=== PATIENT | female | born 1990 | race African-American/Black ===

== ENCOUNTER 2017-04-10 14:20 | Emergency (ER) | payer SELFPAY ==
--- NOTE | 2017-04-10 14:51 | RAD ---
3 VIEWS LEFT FOOT: Date: 04/10/17 COMPARISON: 12/09/15. HISTORY: Left foot pain after descending steps. FINDINGS: Three views of the left foot show no evidence of acute fracture or dislocation. No degenerative ragland ges are seen. No soft tissue swelling is present. IMPRESSION: No evidence of acute osseous abnormality. POS: [facility]
[2017-04-10] MEDS ORDERED: Ketorolac Tromethamine 60 MG/2 ML VIAL ONE (15:23)
== END 2017-04-10 15:53 | disposition home or self-care (01) ==
LOC: ERS 14:20
DX: S96.912A Strain of unspecified muscle and tendon at ankle and foot level, left foot, initial encounter (principal); F41.9 Anxiety disorder, unspecified; F32.9 Major depressive disorder, single episode, unspecified; W10.9XXA Fall (on) (from) unspecified stairs and steps, initial encounter
CPT/HCPCS: 96372; J1885

== ENCOUNTER 2017-06-30 16:34 | Emergency (ER) | payer SELFPAY ==
--- NOTE | 2017-06-30 18:00 | RAD ---
AP CHEST: Indication: Chest congestion. Comparison: 02-29-16 IMPRESSION: No focal consolidation demonstrated. Examination does not appear appreciably changed from comparison 02-29-16. POS: [facility]
[2017-06-30] MEDS ORDERED: Dexamethasone 4 mg/ml Vial ONE (18:11)
== END 2017-06-30 18:30 | disposition home or self-care (01) ==
LOC: ERS 16:34
DX: J20.9 Acute bronchitis, unspecified (principal); F41.9 Anxiety disorder, unspecified; F32.9 Major depressive disorder, single episode, unspecified
CPT/HCPCS: 71045; 87804; 96372; J1100

== ENCOUNTER 2018-12-15 21:27 | Emergency (ER) | payer SELFPAY | END 2018-12-15 22:27 | disposition home or self-care (01) | LOC: SCSER 21:27 | DX: M25.472 Effusion, left ankle (principal); M25.471 Effusion, right ankle; F41.9 Anxiety disorder, unspecified; F32.9 Major depressive disorder, single episode, unspecified | CPT/HCPCS: 99283 ==

== ENCOUNTER 2019-02-28 16:18 | Emergency (ER) | payer MEDICAID, OTHER, SELFPAY ==
--- NOTE | 2019-02-28 17:48 | RAD ---
RIGHT TIBIA AND FIBULA TWO VIEWS: History: Right lower leg pain following an injury. Comparison: 07-27-13 FINDINGS: No fracture or dislocation. IMPRESSION: Unremarkable right tibia and fibula. POS: [facility]
== END 2019-02-28 17:50 | disposition home or self-care (01) ==
LOC: SCSER 16:18
DX: S86.911A Strain of unspecified muscle(s) and tendon(s) at lower leg level, right leg, initial encounter (principal); F32.9 Major depressive disorder, single episode, unspecified; F41.9 Anxiety disorder, unspecified; W18.42XA Slipping, tripping and stumbling without falling due to stepping into hole or opening, initial encounter

== ENCOUNTER 2020-04-02 09:01 | Emergency (ER) | payer SELFPAY ==
[2020-04-02] MEDS ORDERED: Acetaminophen 325 MG Suppository ONE (09:15)
[2020-04-02] MEDS ORDERED: Acetaminophen 650 MG Suppository ONE (09:15)
[2020-04-02] MEDS ORDERED: Ketorolac Tromethamine 30 MG/ML VIAL ONE (09:23)
[2020-04-02] MEDS ORDERED: Piperacillin/Tazobactam 4.5 GM VIAL ONE (09:23)
[2020-04-02] MEDS ORDERED: Morphine 4 MG/ML VIAL ONE (09:23)
[2020-04-02] MEDS ORDERED: Ondansetron PF 4 MG/2 ML Vial ONE (09:23)
[2020-04-02 09:48] LABS: Hemoglobin 12.2 g/dL (12.0-16.0); Mean Corpuscular Hemoglobin 27.2 pg (27.0-31.0); Mean Corpuscular Volume 82.3 fL (78.0-98.0); Mean Platelet Volume 8.7 fL (7.4-10.4); Platelet Count 196 thou/uL (130-400); RBC Distribution Width 13.2 % (11.5-14.5); White Blood Cell (WBC) Count 10.9 thou/uL (4.8-10.8)
--- NOTE | 2020-04-02 10:01 | RAD ---
EXAM: CHEST ONE VIEW HISTORY: Right upper quadrant abdominal pain with pain rating to the back. Vomiting after eating. COMPARISON: 06/30/2017 FINDINGS: The cardiac silhouette and pulmonary vasculature are within normal limits. The lungs are clear. The o sseous structures are intact. No interval change when compared to prior study. IMPRESSION: No acute cardiopulmonary process.
[2020-04-02 10:04] LABS: ALT (SGPT) 9 U/L (8-55); AST (SGOT) 21 U/L (5-34); Albumin 4.1 g/dL (3.5-5.0); Alkaline Phosphatase 64 U/L (40-110); Anion Gap 19 mmol/L (10-20); BUN (Urea Nitrogen) 7 mg/dL (7.0-18.7); Bilirubin, Total 0.7 mg/dL (0.2-1.2); Calc. Creatinine Clearance 0 mL/min (70-130); Calcium 8.7 mg/dL (7.8-10.44); Carbon Dioxide 16 mmol/L (22-29); Chloride 103 mmol/L (98-107); Estimated GFR-MDRD 80; Globulin 4.2 g/dL (2.4-3.5); Glucose 118 mg/dL (70-105); Potassium 3.6 mmol/L (3.5-5.1); Protein, Total 8.3 g/dL (6.0-8.3); Sodium 134 mmol/L (136-145)
[2020-04-02 10:10] LABS: Band 1 % (5-11); Hypersemented Neutrophil SLIGHT; Lymphocytes 7 % (21-51); MDiff Complete? YES; Monocytes 10 % (0-10); Neutrophil 82 % (42-75); Platelet Morphology Comment Appears Adequate
[2020-04-02 10:15] LABS: Bilirubin Negative (Negative); Blood, Urine 1+ (Negative); Clarity Turbid (Clear); Glucose, Urine (Dipstick) Normal (Negative); Ketone, Urine Negative (Negative); Leukocyte 250 Leu/uL (Negative); Nitrite Negative (Negative); Protein, Urine (Dipstick) 100 mg/dL (Neg-Trace); Specific Gravity, Urine 1.034 (1.002-1.036); Squamous Epithelial 0-3 HPF (0-3); WBC/HPF 21-50 HPF (0-3)
[2020-04-02 10:30] LABS: Bacteria/HPF 1+ HPF (None Seen); Mucous/LPF 1+ LPF (<2+); Renal Epithelial 0-3 HPF (None Seen); Transitional Epithelial 0-3 HPF (None Seen)
--- NOTE | 2020-04-02 11:45 | CT ---
CT ABDOMEN AND PELVIS PERFORMED WITH CONTRAST ENHANCEMENT: HISTORY: Severe and worsening primarily upper and right-sided abdomen pain for the last 4 days. FINDINGS: The lung bases are clear. The liver is 19 cm in length. A small hypodensity within the right lobe of the liver is statisticall y most likely a small cyst, possibly a tiny hemangioma. CT attenuation of the liver is slightly less than the spleen but not definite criteria for fatty change. The pancreas region is unremarkable. G allstones are noted. The right and left adrenal glands are normal. Some altered attenuation in the cortex of the upper po le of the left kidney. There is no perinephric fat stranding, but clinical correlation as to any sym ptoms that would suggest a pyelonephritis. There is no significant periaortic or mesenteric adenopat hy. CT OF PELVIS PERFORMED WITH CONTRAST ENHANCEMENT: Follicles are seen involving both adnexa. No adenopathy or mass. Appendix is somewhat difficult to visualize but appears unremarkable. IMPRESSION: 1. Gallstones. 2. Borderline liver size. 3. Subtle areas of altered attenuation of the cortex of the upper pole of the right kidney. I canno t definitely exclude the possibility of pyelonephritis. Clinical correlation recommended. POS: [facility]
[2020-04-02] MEDS ORDERED: Iopamidol-370 76% 500 ML 1 ML ONE (13:58)
== END 2020-04-02 11:57 | disposition home or self-care (01) ==
LOC: ERS 09:01
DX: N10 Acute pyelonephritis (principal); F41.9 Anxiety disorder, unspecified; F32.9 Major depressive disorder, single episode, unspecified
CPT/HCPCS: 36415; 51701; 71045; 74177; 80053; 81003; 81015; 83605; 85025; 87040; 87077; 87086; 87186; 93005; 96365; 96374; 96375; J1885; J2270; J2405; J2543; Q9967

== ENCOUNTER 2020-04-03 09:30 | Inpatient (IN) | payer SELFPAY ==
[2020-04-03] MEDS ORDERED: Ondansetron PF 4 MG/2 ML Vial ONE (10:06)
[2020-04-03] MEDS ORDERED: Fentanyl 100 MCG/2 ML VIAL ONE ×2 (10:06→14:06)
[2020-04-03] MEDS ORDERED: MEROPENEM 1 GM/50 ML 1 GM in Premix Bag 1 BAG IVPB SCH (10:15)
[2020-04-03 10:19] LABS: Hemoglobin 11.4 g/dL (12.0-16.0); Mean Corpuscular HGB CONC 32.3 g/dL (32.0-36.0); Mean Corpuscular Hemoglobin 26.3 pg (27.0-31.0); Mean Corpuscular Volume 81.4 fL (78.0-98.0); Mean Platelet Volume 8.7 fL (7.4-10.4); Platelet Count 183 thou/uL (130-400); Red Blood Cell (RBC) Count 4.34 mill/uL (4.20-5.40); White Blood Cell (WBC) Count 11.8 thou/uL (4.8-10.8)
[2020-04-03 10:25] LABS: BHCG - Serum Negative (NEGATIVE); Pregs Control Background? CLEAR/WHITE (CLR/WHITE); Pregs Control Bar Appear? YES (CONTROL BAR)
[2020-04-03 10:38] LABS: ALT (SGPT) 10 U/L (8-55); AST (SGOT) 16 U/L (5-34); Albumin 3.7 g/dL (3.5-5.0); Alkaline Phosphatase 62 U/L (40-110); Anion Gap 15 mmol/L (10-20); BUN (Urea Nitrogen) 8 mg/dL (7.0-18.7); Bilirubin, Total 0.8 mg/dL (0.2-1.2); Calc. Creatinine Clearance 0 mL/min (70-130); Calcium 8.4 mg/dL (7.8-10.44); Carbon Dioxide 21 mmol/L (22-29); Chloride 104 mmol/L (98-107); Estimated GFR-MDRD 87; Globulin 3.8 g/dL (2.4-3.5); Glucose 109 mg/dL (70-105); Protein, Total 7.5 g/dL (6.0-8.3); Sodium 137 mmol/L (136-145)
[2020-04-03 11:08] LABS: Band 8 % (5-11); Eosinophils 1 % (0-10); Lymphocytes 12 % (21-51); MDiff Complete? YES; Monocytes 9 % (0-10); Neutrophil 70 % (42-75); Platelet Morphology Comment Appears Adequate; Polychromasia SLIGHT = 2-3 cells (100X) (0-2/hpf)
[2020-04-03 12:15] LABS: Bacteria/HPF None Seen HPF (None Seen); Bilirubin Negative (Negative); Blood, Urine 1+ (Negative); Clarity Clear (Clear); Glucose, Urine (Dipstick) Normal (Negative); Ketone, Urine 60 mg/dL (Negative); Leukocyte Negative Leu/uL (Negative); Mucous/LPF 1+ LPF (<2+); Nitrite Negative (Negative); Protein, Urine (Dipstick) 70 mg/dL (Neg-Trace); Specific Gravity, Urine 1.023 (1.002-1.036); Squamous Epithelial 0-3 HPF (0-3)
--- NOTE | 2020-04-03 13:17 | PDOC.HHP ---
Hospitalist HPI - History of Present Illness UTI symptoms History of Present Illness: PCP: None The patient is a 29-year-old female with no significant past medical history that presents to the emergency department via EMS for the above complaint. The patient was seen in the emergency department yesterday, diagnosed with a urinary tract infection. She was sent home with prescriptions for ciprofloxacin and Phenergan. However, she was unable to fill her prescriptions because the pharmacy was closed. Since leaving the ER yesterday, the patient reports that she has felt nauseous and had been vomiting. She is unable to hold down any oral intake. She reports being febrile yesterday, prior to arriving at the ER. T-max 103.8 Fahrenheit. She reports associated chills. She reports associated right lower quadrant abdominal pain. She denies any hemoptysis, hematemesis, melena or hematochezia. She denies any vaginal discharge. Since her symptoms have been worsening, she called EMS. Upon arrival, EMS found the patient be tachycardic with normal BP, RR, SPO2, afebrile. She reported her pain 10/10. She was given 50 mcg of fentanyl IV push and taken to the emergency department for further evaluation. ED Course: VITAL SIGNS FriApr 03, 2020 09:38 LIS Tenorio Ashleigh BP: 126/81, Pulse: 83, Resp: 28 CRY, Temp: 99.0 (Oral), Pain: 10, O2 sat: 96 on (Room Air), Time: 04/03/2020 09:38. VITAL SIGNS FriApr 03, 2020 10:16 LIS Tenorio Ashleigh BP: 123/70, Pulse: 87, Resp: 18 (Non-Labored), O2 sat: 99 on (Room Air), Time: 04/03/2020 10:16. VITAL SIGNS FriApr 03, 2020 11:19 LIS Tenorio Ashleigh BP: 140/75, Pulse: 93, Resp: 18 (Non-Labored), Pain: 6, O2 sat: 99 on (Room Air), Time: 04/03/2020 11:19. Medication administration: fentaNYL (PF) injection 50 mcg IV Push Acknowledged 13:02 04/03/2020 meropenem 1 g IV Piggy Back Acknowledged 10:02 04/03/2020 vancomycin intravenous 2 g IV Piggy Back Given 11:19 04/03/2020 ondansetron HCl intravenous 4 mg IV Push Given 10:15 04/03/2020 fentaNYL (PF) injection 50 mcg IV Push Given 10:15 04/03/2020 sodium chloride 0.9 % intravenous 1 L IV Fluid Infusion Given 10:14 04/03/2020 Hospitalist ROS - Review of Systems Constitutional: reports: fever, chills Respiratory: denies: shortness of breath, hemoptysis, sputum, wheezing Cardiovascular: denies: chest pain, palpitations, edema, light headedness Gastrointestinal: reports: nausea, vomiting, abdominal pain (Right lower quadrant abdominal pain). denies: diarrhea, constipation, melena, hematochezia Genitourinary: reports: dysuria, frequency. denies: incontinence, retention Neurological: denies: weakness, incoordination, change in speech, confusion All other systems reviewed; all pertinent +/- noted in HPI/Subj - Medication Medications: Cipro tablet 500 mg : Strength - tablet : ORAL Patient Dose: 1 tab(s) Oral every 12 hours. promethazine oral 25 mg : Strength - tablet : ORAL Patient Dose: 1 tab(s) Oral every 6 hours PRN.As needed for nausea and vomiting. Allergies: Haldol tablet Hospitalist History - Past Medical History Source: patient, RN notes reviewed Cardiac: reports: no pertinent history Pulmonary: reports: no pertinent history [employer]: reports: no pertinent history Gastrointestinal: reports: no pertinent history Heme/Onc: reports: no pertinent history Hepatobiliary: reports: no pertinent history Psych: reports: no pertinent history Musculoskeletal: reports: no pertinent history Rheumatologic: reports: no pertinent history Infectious Disease: reports: no pertinent history ENT: reports: no pertinent history Renal/: reports: no pertinent history Endocrine: reports: no pertinent history Dermatology: reports: no pertinent history - Past Surgical History Past Surgical History: reports: (X5), Tubal Ligation - Family History Family History: reports: no pertinent history Other Family History: Noncontributory to this case - Social History Smoking Status: Never smoker Alcohol: reports: None Drugs: reports: none Living Situation: With Family Occupation: Does not work Activity level: independent ambulation - Exam General Appearance: awake alert. negative: ill appearing General - other findings: Uncomfortable appearing Eye: anicteric sclera ENT: normocephalic atraumatic Neck: supple, symmetric, no JVD Heart: RRR, no murmur, no gallops, no rubs, normal peripheral pulses Respiratory: CTAB, no wheezes, no rales, no ronchi, normal chest expansion, no tachypnea Gastrointestinal: soft, non-distended, no bruit, no guarding, no rigidity, tender to palpation (Right lower quadrant) Gastrointestinal - other findings: Right CVA tenderness Extremities: no cyanosis, no edema Skin: no rashes Neurological: no weakness, no focal deficits Musculoskeletal: normal tone, normal strength Psychiatric: normal affect, A&O x 3 Hospitalist Results - Labs Result Diagrams: 04/03/20 09:53 04/03/20 09:53 Lab results: WBC 11.8 thou/uL (4.8-10.8) H 04/03/20 09:53 Hgb 11.4 g/dL (12.0-16.0) L 04/03/20 09:53 Hct 35.3 % (36.0-47.0) L 04/03/20 09:53 MCV 81.4 fL (78.0-98.0) 04/03/20 09:53 Plt Count 183 thou/uL (130-400) 04/03/20 09:53 Band Neuts % (Manual) 8 % (5-11) 04/03/20 09:53 Sodium 137 mmol/L (136-145) 04/03/20 09:53 Potassium 3.0 mmol/L (3.5-5.1) L 04/03/20 09:53 Chloride 104 mmol/L (98-107) 04/03/20 09:53 Carbon Dioxide 21 mmol/L (22-29) L 04/03/20 09:53 BUN 8 mg/dL (7.0-18.7) 04/03/20 09:53 Creatinine 0.92 mg/dL (0.6-1.1) 04/03/20 09:53 Glucose 109 mg/dL (70-105) H 04/03/20 09:53 Lactic Acid 1.5 mmol/L (0.5-2.2) 04/03/20 10:00 Calcium 8.4 mg/dL (7.8-10.44) 04/03/20 09:53 Total Bilirubin 0.8 mg/dL (0.2-1.2) 04/03/20 09:53 AST 16 U/L (5-34) 04/03/20 09:53 ALT 10 U/L (8-55) 04/03/20 09:53 Alkaline Phosphatase 62 U/L (40-110) 04/03/20 09:53 Serum Total Protein 7.5 g/dL (6.0-8.3) 04/03/20 09:53 Albumin 3.7 g/dL (3.5-5.0) 04/03/20 09:53 Urine Ketones 60 mg/dL (Negative) A 04/03/20 11:55 Urine Blood 1+ (Negative) A 04/03/20 11:55 Urine Nitrite Negative (Negative) 04/03/20 11:55 Ur Leukocyte Esterase Negative Erendira/uL (Negative) 04/03/20 11:55 Urine RBC 7-10 HPF (0-3) A 04/03/20 11:55 Urine WBC 11-20 HPF (0-3) A 04/03/20 11:55 Ur Squamous Epith Cells 0-3 HPF (0-3) 04/03/20 11:55 Urine Bacteria None Seen HPF (None Seen) 04/03/20 11:55 Hospitalist H&P A/P - Problem (1) Acute pyelonephritis Code(s): N10 - ACUTE PYELONEPHRITIS Status: Acute (2) Sepsis Code(s): A41.9 - SEPSIS, UNSPECIFIED ORGANISM Status: Acute (3) Hypokalemia Code(s): E87.6 - HYPOKALEMIA Status: Acute - Plan Plan: 29/F with no significant past medical history presents for pyelonephritis. Presented afebrile, NL BP, HR, SPO2 tachypneic (crying), 10/10 pain. Reported fever and chills at home. UA consistent with UTI (04/02/20)- ED visit WBCs 11.8, lactic acid 1.5, K 3.0 #Acute pyelonephritis Start Rocephin IVPB IVF, analgesics and antiemetics PRN Blood, urine CX pending #Sepsis Likely related problem #1 #Hypokalemia Mild. Likely secondary to vomiting. Give 40 mEq IV piggyback. Check mag. Recheck levels in a.m. Lovenox for DVT prophylaxis. No GI prophylaxis. Full code. Discussed case with Dr. Pace.
[2020-04-03 15:26] VITALS: BMI 33.9
[2020-04-03] MEDS: Ondansetron PF 4 MG/2 ML Vial IVP PRN (15:34)
[2020-04-03] MEDS: Sodium Chloride 0.9% 1,000 ML IV SCH ×2 (15:38→21:01)
[2020-04-03] MEDS: cefTRIAXone\\ROCEPHIN 1 GM in Sodium Chloride 0.9% 100 ML IVPB SCH (15:40)
[2020-04-03] MEDS ORDERED: Potassium Chloride 40 MEQ in Sodium Chloride 0.9% 250 ML 250 ML IVPB SCH (15:45)
[2020-04-03] MEDS: HYDROcodone/Acetaminophen 5/325 mg Tablet PO PRN ×2 (17:05→20:59)
[2020-04-04] MEDS: Acetaminophen 325 MG TAB PO PRN ×2 (00:42→20:13)
[2020-04-04] MEDS: Ondansetron PF 4 MG/2 ML Vial IVP PRN ×2 (00:42→09:18)
[2020-04-04] MEDS: Sodium Chloride 0.9% 1,000 ML IV SCH ×3 (03:32→20:11)
[2020-04-04] MEDS: HYDROcodone/Acetaminophen 5/325 mg Tablet PO PRN ×4 (03:35→20:11)
[2020-04-04 06:38] LABS: Anion Gap 12 mmol/L (10-20); BUN (Urea Nitrogen) 6 mg/dL (7.0-18.7); Calc. Creatinine Clearance 198 mL/min (70-130); Calcium 7.3 mg/dL (7.8-10.44); Carbon Dioxide 19 mmol/L (22-29); Chloride 108 mmol/L (98-107); Estimated GFR-MDRD Greater than 90; Glucose 89 mg/dL (70-105); Potassium 3.4 mmol/L (3.5-5.1); Sodium 136 mmol/L (136-145)
[2020-04-04 06:43] LABS: Band 2 % (5-11); Hemoglobin 9.2 g/dL (12.0-16.0); Hypochromia SLIGHT = 6-15 cells (100X) (0-5/hpf); Lymphocytes 8 % (21-51); MDiff Complete? YES; Mean Corpuscular HGB CONC 32.1 g/dL (32.0-36.0); Mean Corpuscular Hemoglobin 26.2 pg (27.0-31.0); Mean Corpuscular Volume 81.7 fL (78.0-98.0); Mean Platelet Volume 9.1 fL (7.4-10.4); Monocytes 6 % (0-10); Neutrophil 84 % (42-75); Platelet Count 149 thou/uL (130-400); Platelet Morphology Comment Appears Adequate; Red Blood Cell (RBC) Count 3.51 mill/uL (4.20-5.40); White Blood Cell (WBC) Count 7.2 thou/uL (4.8-10.8)
[2020-04-04] MEDS ORDERED: Magnesium 2 GM/50 ML 2 GM in Premix Bag 1 BAG IVPB SCH (07:30)
--- NOTE | 2020-04-04 08:26 | PDOC.HOSPP ---
- Subjective Encounter Date: 04/04/20 Encounter Time: 08:24 Subjective: Patient seen and examined. No new complaints. No overnight events. Reports feeling nauseated last night, resolved with zofran. Still has decreased appetite, ate a few cymro fries last night. Reports right flank pain is impro ving. Denies vomiting or diarrhea. Reports cold sweats last night, did not sleep much. - Objective Vital Signs & Weight: Vital Signs (12 hours) Temp Pulse Resp BP Pulse Ox 04/04/20 07:11 98.2 F 63 18 133/87 100 04/04/20 04:58 98.1 F 62 20 119/79 98 04/04/20 01:08 98.9 F 86 20 137/88 99 Weight Weight 223 lb I&O: 04/03/20 04/04/20 04/05/20 06:59 06:59 06:59 Intake Total 2300 Balance 2300 Result Diagrams: 04/04/20 05:42 04/04/20 05:42 Hospitalist ROS - Review of Systems Constitutional: reports: chills, sweats Respiratory: denies: cough, shortness of breath Cardiovascular: denies: chest pain, palpitations, light headedness Gastrointestinal: reports: nausea, abdominal pain (Right flank pain improving). denies: vomiting, diarrhea Genitourinary: denies: dysuria, hematuria All other systems reviewed; all pertinent +/- noted in HPI/Subj - Medication Medications: Active Medications Generic Name Dose Route Start Last Admin Trade Name Freq PRN Reason Stop Dose Admin Acetaminophen 650 mg 04/03/20 16:59 04/04/20 00:42 Acetaminophen 325 Mg Tab PO 650 mg Q6H PRN Administration Fever/Mild Pain Hydrocodone Bitart/Acetaminophen 1 tab 04/03/20 13:10 04/04/20 03:35 Hydrocodone/Acetaminophen 5/325 Mg Tablet PO 1 tab Q4H PRN Administration Moderate Pain (4-6) Sodium Chloride 1,000 mls @ 150 mls/hr 04/03/20 13:15 04/04/20 03:32 Normal Saline 0.9% IV 1,000 mls .Q6H40M SHELTON Administration Ceftriaxone Sodium 1 gm/ 100 mls @ 200 mls/hr 04/03/20 14:00 04/03/20 15:40 Sodium Chloride IVPB 100 mls Q24HR SHELTON Administration Ondansetron HCl 4 mg 04/03/20 13:10 04/04/20 00:42 Ondansetron Pf 4 Mg/2 Ml Vial IVP 4 mg Q6H PRN Administration Nausea/Vomiting Sodium Chloride 10 ml 04/03/20 21:00 04/03/20 21:01 Flush - Normal Saline 10 Ml Syringe IVF Not Given Q12HR SHELTON - Exam General Appearance: NAD, awake alert. negative: ill appearing General - other findings: uncomfortable appearing Eye: anicteric sclera Heart: RRR, no murmur, no gallops, no rubs, normal peripheral pulses Respiratory: CTAB, no wheezes, no rales, no ronchi, normal chest expansion, no tachypnea Gastrointestinal: soft, non-distended, no guarding, no rigidity, tender to palpation Gastrointestinal - other findings: mild, generalized Extremities: no cyanosis, no edema Neurological: no focal deficits Musculoskeletal: normal tone, normal strength Psychiatric: normal affect, A&O x 3 Hosp A/P (1) Acute pyelonephritis Code(s): N10 - ACUTE PYELONEPHRITIS Status: Acute (2) Sepsis Code(s): A41.9 - SEPSIS, UNSPECIFIED ORGANISM Status: Acute (3) Hypokalemia Code(s): E87.6 - HYPOKALEMIA Status: Acute (4) Low serum magnesium level Code(s): E83.42 - HYPOMAGNESEMIA Status: Acute - Plan 29/F with no significant past medical history presents for pyelonephritis. Presented afebrile, NL BP, HR, SPO2 tachypneic (crying), 10/10 pain. Reported fever and chills at home. UA consistent with UTI (04/02/20)- ED visit WBCs 11.8, lactic acid 1.5, K 3.0 #Acute pyelonephritis WBCs trending down 7.2, Blood/Urine CX no growth at present Continue Rocephin IVPB and IVF at 150mls/hr Analgesics and antiemetics PRN #Sepsis No growth blood/urine CX at this time. #Hypomagnesium Mg level 1.6 Replace 2gm IVBP check in am #Hypokalemia K 3.4 Continue to monitor. Discussed case with Dr. Pace.
[2020-04-04] MEDS ORDERED: FLU VACC QS2020-21(6MOS UP)/PF 60 MCG/0.5 ML SYRINGE IM ONE (09:00)
[2020-04-04] MEDS: Enoxaparin Sodium 40 MG/0.4 ML SYRINGE SC SCH (09:19)
[2020-04-04] MEDS: cefTRIAXone\\ROCEPHIN 1 GM in Sodium Chloride 0.9% 100 ML IVPB SCH (13:11)
[2020-04-04] MEDS ORDERED: Scopolamine 1.5 mg/72 hour Patch TD SCH (14:00)
[2020-04-05] MEDS: HYDROcodone/Acetaminophen 5/325 mg Tablet PO PRN ×4 (00:09→17:46)
[2020-04-05] MEDS: Sodium Chloride 0.9% 1,000 ML IV SCH ×4 (03:38→20:10)
[2020-04-05] MEDS ORDERED: Ketorolac Tromethamine 30 MG/ML VIAL IVP SCH (05:15)
[2020-04-05 05:32] LABS: #Lymphocytes 1.6 thou/uL (1.20-3.40); #Monocytes 0.6 thou/uL (0.11-0.59); #Neutrophils 2.6 thou/uL (1.40-6.50); %Eosinophils 0.7 % (0.0-10.0); %Lymphocytes 33.4 % (21.0-51.0); %Monocytes 11.5 % (0.0-10.0); %Neutrophils 53.3 % (42.0-75.0); Hemoglobin 10.3 g/dL (12.0-16.0); Mean Corpuscular HGB CONC 33.5 g/dL (32.0-36.0); Mean Corpuscular Hemoglobin 26.9 pg (27.0-31.0); Mean Corpuscular Volume 80.3 fL (78.0-98.0); Mean Platelet Volume 9.2 fL (7.4-10.4); Platelet Count 184 thou/uL (130-400); Red Blood Cell (RBC) Count 3.84 mill/uL (4.20-5.40); White Blood Cell (WBC) Count 4.9 thou/uL (4.8-10.8)
[2020-04-05 05:56] LABS: Anion Gap 13 mmol/L (10-20); BUN (Urea Nitrogen) 4 mg/dL (7.0-18.7); Calc. Creatinine Clearance 192 mL/min (70-130); Calcium 7.9 mg/dL (7.8-10.44); Carbon Dioxide 21 mmol/L (22-29); Chloride 107 mmol/L (98-107); Estimated GFR-MDRD Greater than 90; Glucose 89 mg/dL (70-105); Magnesium 1.9 mg/dL (1.6-2.6); Potassium 3.2 mmol/L (3.5-5.1); Sodium 138 mmol/L (136-145)
[2020-04-05] MEDS ORDERED: Potassium Chloride 40 MEQ in Sodium Chloride 0.9% 250 ML 250 ML IVPB SCH (07:45)
[2020-04-05] MEDS: Enoxaparin Sodium 40 MG/0.4 ML SYRINGE SC SCH (08:20)
--- NOTE | 2020-04-05 08:37 | PDOC.HOSPP ---
- Subjective Encounter Date: 04/05/20 Encounter Time: 08:33 Subjective: Patient seen and examined. Reports feeling a little better. Reports scopolamine patch resolved nausea. Reports scared to take pain pills because she might become addicted. She asked why her heart rate is so slow now. Denies any chest pain, light headedness. Denies feeling SOB at this time. - Objective Vital Signs & Weight: Vital Signs (12 hours) Temp Pulse Resp BP Pulse Ox 04/05/20 07:35 97.9 F 47 L 16 145/85 H 99 04/05/20 04:00 98.0 F 43 L 18 145/83 H 100 04/05/20 00:00 98.0 F 51 L 18 154/96 H 100 Weight Admit Weight 223 lb Weight 223 lb I&O: 04/04/20 04/05/20 04/06/20 06:59 06:59 06:59 Intake Total 2300 Balance 2300 Result Diagrams: 04/05/20 05:20 04/05/20 05:21 Hospitalist ROS - Review of Systems Constitutional: denies: fever, chills Respiratory: denies: cough, shortness of breath Cardiovascular: denies: chest pain, palpitations Gastrointestinal: reports: abdominal pain (mild). denies: nausea (resolved with scopolamine patch), vomiting, diarrhea, constipation Genitourinary: denies: dysuria, hematuria Neurological: denies: weakness, change in speech All other systems reviewed; all pertinent +/- noted in HPI/Subj - Medication Medications: Active Medications Generic Name Dose Route Start Last Admin Trade Name Freq PRN Reason Stop Dose Admin Acetaminophen 650 mg 04/03/20 16:59 04/04/20 20:13 Acetaminophen 325 Mg Tab PO 650 mg Q6H PRN Administration Fever/Mild Pain Hydrocodone Bitart/Acetaminophen 1 tab 04/03/20 13:10 04/05/20 08:30 Hydrocodone/Acetaminophen 5/325 Mg Tablet PO 1 tab Q4H PRN Administration Moderate Pain (4-6) Enoxaparin Sodium 40 mg 04/04/20 09:00 04/05/20 08:20 Enoxaparin Sodium 40 Mg/0.4 Ml Syringe SC 40 mg 0900 SHELTON Administration Sodium Chloride 1,000 mls @ 150 mls/hr 04/03/20 13:15 04/05/20 08:31 Normal Saline 0.9% IV 1,000 mls .Q6H40M SHELTON Administration Ceftriaxone Sodium 1 gm/ 100 mls @ 200 mls/hr 04/03/20 14:00 04/04/20 13:11 Sodium Chloride IVPB 100 mls Q24HR SHELTON Administration Ondansetron HCl 4 mg 04/03/20 13:10 04/04/20 09:18 Ondansetron Pf 4 Mg/2 Ml Vial IVP 4 mg Q6H PRN Administration Nausea/Vomiting Sodium Chloride 10 ml 04/03/20 21:00 04/04/20 20:14 Flush - Normal Saline 10 Ml Syringe IVF Not Given Q12HR SHELTON - Exam General Appearance: NAD, awake alert Heart: RRR, no murmur, no gallops, no rubs, normal peripheral pulses Respiratory: CTAB, no wheezes, no rales, no ronchi, normal chest expansion, no tachypnea Gastrointestinal: soft, non-distended, normal bowel sounds, no rigidity, tender to palpation (mild to moderate right flank) Extremities: no cyanosis, no edema Skin: no rashes Neurological: no focal deficits Musculoskeletal: normal tone, normal strength Psychiatric: normal affect, A&O x 3 Hosp A/P (1) Acute pyelonephritis Code(s): N10 - ACUTE PYELONEPHRITIS Status: Acute (2) Sepsis Code(s): A41.9 - SEPSIS, UNSPECIFIED ORGANISM Status: Acute (3) Bradycardia Code(s): R00.1 - BRADYCARDIA, UNSPECIFIED Status: Acute (4) Hypokalemia Code(s): E87.6 - HYPOKALEMIA Status: Acute (5) Low serum magnesium level Code(s): E83.42 - HYPOMAGNESEMIA Status: Acute - Plan 29/F with no significant past medical history presents for pyelonephritis. Presented afebrile, NL BP, HR, SPO2 tachypneic (crying), 10/10 pain. Reported fever and chills at home. UA consistent with UTI (04/02/20)- ED visit WBCs 11.8, lactic acid 1.5, K 3.0 #Acute pyelonephritis WBCs trending down 7.2, Blood/Urine CX no growth at present Continue Rocephin IVPB and IVF at 150mls/hr Analgesics and antiemetics PRN #Sepsis No growth blood/urine CX at this time. # Bradycardia EKG SB. Likely d/t scopolamine patch. Will d/c patch. Will add phenergan IVPB prn for nausea. Check TSH level. #Hypomagnesium Mg level 1.9 #Hypokalemia K 3.2 Replace 40 mEQ IVPB x 1 dose Continue to monitor. Discussed case with Dr. Pace.
[2020-04-05] MEDS ORDERED: Promethazine HCl 25 MG in Sodium Chloride 0.9% 50 ML IVPB PRN (09:48)
[2020-04-05] MEDS: cefTRIAXone\\ROCEPHIN 1 GM in Sodium Chloride 0.9% 100 ML IVPB SCH (13:23)
[2020-04-06 06:34] LABS: Anion Gap 14 mmol/L (10-20); BUN (Urea Nitrogen) 4 mg/dL (7.0-18.7); Calc. Creatinine Clearance 187 mL/min (70-130); Calcium 7.8 mg/dL (7.8-10.44); Carbon Dioxide 23 mmol/L (22-29); Chloride 104 mmol/L (98-107); Estimated GFR-MDRD Greater than 90; Glucose 99 mg/dL (70-105); Potassium 3.2 mmol/L (3.5-5.1); Sodium 138 mmol/L (136-145)
[2020-04-06 06:49] LABS: #Basophils 0.1 thou/uL (0.0-0.2); #Eosinphils 0.1 thou/uL (0.0-0.7); #Lymphocytes 1.7 thou/uL (1.20-3.40); #Monocytes 0.7 thou/uL (0.11-0.59); #Neutrophils 3.8 thou/uL (1.40-6.50); %Basophils 1.1 % (0.0-1.0); %Eosinophils 0.8 % (0.0-10.0); %Lymphocytes 26.5 % (21.0-51.0); %Monocytes 11.2 % (0.0-10.0); %Neutrophils 60.4 % (42.0-75.0); Hemoglobin 10.1 g/dL (12.0-16.0); Mean Corpuscular HGB CONC 32.9 g/dL (32.0-36.0); Mean Corpuscular Hemoglobin 26.7 pg (27.0-31.0); Mean Corpuscular Volume 81.1 fL (78.0-98.0); Mean Platelet Volume 8.4 fL (7.4-10.4); Platelet Count 255 thou/uL (130-400); RBC Distribution Width 12.8 % (11.5-14.5); Red Blood Cell (RBC) Count 3.78 mill/uL (4.20-5.40); White Blood Cell (WBC) Count 6.3 thou/uL (4.8-10.8)
--- NOTE | 2020-04-06 07:13 | EKG ---
Test Reason : Blood Pressure : / mmHG Vent. Rate : 046 BPM Atrial Rate : 046 BPM P-R Int : 124 ms QRS Dur : 088 ms QT Int : 484 ms P-R-T Axes : 043 031 008 degrees QTc Int : 423 ms Sinus bradycardia Septal infarct (cited on or before 02-APR-2020) borderline short TX interval Abnormal ECG When compared with ECG of 02-APR-2020 09:12, (Unconfirmed) Vent. rate has decreased BY [address] no longer depressed in Inferior leads ST elevation now present in Lateral leads T wave inversion less evident in Inferior leads T wave inversion no longer evident in Lateral leads Confirmed by DR. Aureliano HERNANDEZ ([id number]) on 04/06/2020 7:13:27 AM Referred By: FANI GRAMAJO Confirmed By:DR. Aureliano HERNANDEZ
[2020-04-06] MEDS: HYDROcodone/Acetaminophen 5/325 mg Tablet PO PRN ×3 (08:22→22:05)
[2020-04-06] MEDS: Potassium Chloride 20 MEQ TAB PO SCH ×2 (08:22→17:46)
[2020-04-06] MEDS: Enoxaparin Sodium 40 MG/0.4 ML SYRINGE SC SCH (08:23)
[2020-04-06] MEDS: Sodium Chloride 0.9% 1,000 ML IV SCH ×3 (10:50→17:46)
--- NOTE | 2020-04-06 12:53 | PDOC.HOSPP ---
- Subjective Encounter Date: 04/06/20 Encounter Time: 10:35 Subjective: nausea and abd pain are better is amb in room tolerating liq diet - Objective Vital Signs & Weight: Vital Signs (12 hours) Temp Pulse Resp BP Pulse Ox 04/06/20 07:42 98.4 F 52 L 18 143/87 H 99 04/06/20 04:00 98.5 F Weight Admit Weight 223 lb Weight 223 lb I&O: 04/05/20 04/06/20 04/07/20 06:59 06:59 06:59 Intake Total 2200 Balance 2200 Result Diagrams: 04/06/20 05:36 04/06/20 05:36 Hospitalist ROS - Medication Medications: Active Medications Generic Name Dose Route Start Last Admin Trade Name Freq PRN Reason Stop Dose Admin Acetaminophen 650 mg 04/03/20 16:59 04/04/20 20:13 Acetaminophen 325 Mg Tab PO 650 mg Q6H PRN Administration Fever/Mild Pain Hydrocodone Bitart/Acetaminophen 1 tab 04/03/20 13:10 04/06/20 08:22 Hydrocodone/Acetaminophen 5/325 Mg Tablet PO 1 tab Q4H PRN Administration Moderate Pain (4-6) Enoxaparin Sodium 40 mg 04/04/20 09:00 04/06/20 08:23 Enoxaparin Sodium 40 Mg/0.4 Ml Syringe SC 40 mg 0900 SHELTON Administration Sodium Chloride 1,000 mls @ 150 mls/hr 04/03/20 13:15 04/06/20 10:50 Normal Saline 0.9% IV 1,000 mls .Q6H40M SHELTON Administration Promethazine HCl 25 mg/ Sodium 51 mls @ 102 mls/hr 04/05/20 09:48 04/05/20 20:10 Chloride IVPB 51 mls Q6H PRN Administration Nausea Potassium Chloride 40 meq 04/06/20 08:00 04/06/20 08:22 Potassium Chloride 20 Meq Tab PO 04/07/20 08:01 40 meq BID-WM SHELTON Administration Sodium Chloride 10 ml 04/03/20 21:00 04/06/20 08:24 Flush - Normal Saline 10 Ml Syringe IVF Not Given Q12HR SHELTON - Exam General Appearance: awake alert Eye: PERRL, anicteric sclera ENT: no oropharyngeal lesions, moist mucosa Neck: supple, no JVD Heart: RRR, no murmur Respiratory: no wheezes, no rales, no ronchi Gastrointestinal: soft, non-distended, normal bowel sounds Extremities: no cyanosis, no edema Neurological: cranial nerve grossly intact, no focal deficits Psychiatric: normal affect, A&O x 3 Hosp A/P (1) Intractable nausea and vomiting Code(s): R11.2 - NAUSEA WITH VOMITING, UNSPECIFIED Status: Resolved (2) Acute pyelonephritis Code(s): N10 - ACUTE PYELONEPHRITIS Status: Acute (3) Sepsis Code(s): A41.9 - SEPSIS, UNSPECIFIED ORGANISM Status: Acute Qualifiers: Sepsis type: Escherichia coli Sepsis acute organ dysfunction status: without acute organ dysfunction Qualified Code(s): A41.51 - Sepsis due to Escherichia coli [E. coli] (4) Obesity (BMI 30.0-34.9) Code(s): E66.9 - OBESITY, UNSPECIFIED Status: Chronic - Plan on cipro based on cultures solid diet dc plan in am if tolerating diet hemostable to amb in hallway
[2020-04-06] MEDS: Ciprofloxacin 500 MG TAB PO SCH (20:50)
[2020-04-07] MEDS: Sodium Chloride 0.9% 1,000 ML IV SCH (01:35)
[2020-04-07] MEDS: Ciprofloxacin 500 MG TAB PO SCH (06:02)
[2020-04-07 06:29] LABS: Hemoglobin 10.2 g/dL (12.0-16.0); Mean Corpuscular HGB CONC 34.9 g/dL (32.0-36.0); Mean Corpuscular Hemoglobin 27.9 pg (27.0-31.0); Mean Platelet Volume 8.5 fL (7.4-10.4); Platelet Count 283 thou/uL (130-400); RBC Distribution Width 12.9 % (11.5-14.5); Red Blood Cell (RBC) Count 3.67 mill/uL (4.20-5.40)
[2020-04-07 06:47] LABS: Band 1 % (5-11); Eosinophils 2 % (0-10); Lymphocytes 35 % (21-51); MDiff Complete? YES; Metamyelocyte 1 % (0-0); Monocytes 7 % (0-10); Neutrophil 54 % (42-75)
[2020-04-07 06:49] LABS: Anion Gap 10 mmol/L (10-20); BUN (Urea Nitrogen) Less than 4 mg/dL (7.0-18.7); Calc. Creatinine Clearance 192 mL/min (70-130); Calcium 7.7 mg/dL (7.8-10.44); Carbon Dioxide 26 mmol/L (22-29); Chloride 108 mmol/L (98-107); Estimated GFR-MDRD Greater than 90; Glucose 98 mg/dL (70-105); Potassium 3.1 mmol/L (3.5-5.1); Sodium 141 mmol/L (136-145)
[2020-04-07] MEDS: HYDROcodone/Acetaminophen 5/325 mg Tablet PO PRN (08:34)
[2020-04-07] MEDS: Potassium Chloride 20 MEQ TAB PO SCH (08:34)
[2020-04-07] MEDS: Enoxaparin Sodium 40 MG/0.4 ML SYRINGE SC SCH (08:35)
--- NOTE | 2020-04-07 13:56 | DIS ---
DATE OF ADMISSION: 04/03/2020 DATE OF DISCHARGE: 04/07/2020 DISCHARGE DISPOSITION: Home. PRIMARY DISCHARGE DIAGNOSES: Acute pyelonephritis with sepsis, resolved; intractable nausea and vomiting; obesity. PROCEDURES DONE DURING HOSPITALIZATION: Urine culture obtained on 04/02/2020 grew E coli sensitive to quinolones. Blood cultures x2, no growth. Had a white count of 11 on admission, discharge white count of 6; H and H 10 and 29; platelet count 283; MCV is 80. Discharge BUN and creatinine are 4 and 0.6. Serum test was negative. DISCHARGE MEDICATIONS: Ciprofloxacin 500 mg p.o. twice daily for another 7 days. DISCHARGE PLAN: The patient to follow up with primary care physician, nurse practitioner Shilpa Carrasco on 04/10/2020 at 10:45 a.m. ALLERGIES: NO KNOWN DRUG ALLERGIES. BRIEF COURSE DURING HOSPITALIZATION: The patient initially came to ER on 04/03/2020 with complaints of urinary frequency and urgency, intractable nausea and vomiting, and a temperature 103. She also had CVA angle tenderness on the right side. Brenner-cultures were obtained and the patient was admitted to medical floor. She was on broad-spectrum antibiotics, which has been transitioned to ciprofloxacin for another 7 days. Prior to discharge, she is tolerating oral solid diet and ambulating well. She was counseled to hydrate herself well. Please note, I have seen and examined the patient on the day of discharge. Job ID: [id number]
[2020-04-07 14:51] VITALS: BP 138/89; TEMP 98
== END 2020-04-07 11:01 | disposition home or self-care (01) | DRG 872 ==
LOC: ERS 09:30 → T4-A 13:12 → OBSVTOIN 13:12
PROVIDERS: ADMIT Internal Medicine; ATTEND Internal Medicine
DX: A41.51 Sepsis due to Escherichia coli [E. coli] (principal); N10 Acute pyelonephritis; E66.9 Obesity, unspecified; E87.6 Hypokalemia; E83.42 Hypomagnesemia; R00.1 Bradycardia, unspecified; Z23 Encounter for immunization; Z68.33 Body mass index [BMI] 33.0-33.9, adult; Z98.51 Tubal ligation status
CPT/HCPCS: 36415; 80048; 80053; 81003; 81015; 83605; 83735; 84443; 84703; 85025; 87040; 87086; 90471; 90662; 93005; 93010; 96361; 96365; 96366; 96367; 96372; 96375; 96376; G0008; G0378; J0696; J1650; J1885; J2185; J2405; J2550; J3010; J3370; J3475; J3480; J3490; J7030; J7050

== ENCOUNTER 2020-09-24 09:57 | Emergency (ER) | payer SELFPAY | END 2020-09-24 11:50 | disposition home or self-care (01) | LOC: ERS 09:57 | DX: K04.7 Periapical abscess without sinus (principal); K02.9 Dental caries, unspecified; K03.81 Cracked tooth | CPT/HCPCS: 99283 ==

== ENCOUNTER 2020-11-02 16:17 | Emergency (ER) | payer SELFPAY ==
[2020-11-02] MEDS ORDERED: Dexamethasone 10 MG/ML VIAL ONE (16:55)
[2020-11-02 20:48] LABS: SARS-CoV-2 PCR by NAA Not Detected (NotDetected)
== END 2020-11-02 17:02 | disposition home or self-care (01) ==
LOC: ERS 16:17
DX: R19.7 Diarrhea, unspecified (principal); R68.83 Chills (without fever); Z20.822 Contact with and (suspected) exposure to COVID-19
CPT/HCPCS: 87635; 99281; J1100; U0003; U0005

== ENCOUNTER 2021-01-19 19:56 | Emergency (ER) | payer SELFPAY | END 2021-01-19 20:54 | LOC: ERS 19:56 | DX: Z53.21 Procedure and treatment not carried out due to patient leaving prior to being seen by health care provider (principal) | CPT/HCPCS: 87081; 87430 ==

== ENCOUNTER 2021-05-19 22:17 | Emergency (ER) | payer SELFPAY ==
[2021-05-20 16:18] LABS: SARS-CoV-2 PCR by NAA Not Detected (NotDetected)
== END 2021-05-20 | disposition home or self-care (01) ==
LOC: ERS 22:17
DX: J02.9 Acute pharyngitis, unspecified (principal); Z20.822 Contact with and (suspected) exposure to COVID-19
CPT/HCPCS: 87081; 87430; 99283; U0003; U0005

== ENCOUNTER 2021-07-23 03:38 | Emergency (ER) | payer SELFPAY ==
[2021-07-23] MEDS ORDERED: Fentanyl 100 MCG/2 ML VIAL ONE (04:19)
[2021-07-23] MEDS ORDERED: PROPOFOL 20 ML ONE (04:19)
[2021-07-23] MEDS ORDERED: Ketorolac Tromethamine 30 MG/ML VIAL ONE (04:19)
[2021-07-23] MEDS ORDERED: Ketamine 50 MG/ML (10ML VIAL) ONE (04:32)
== END 2021-07-23 05:26 | disposition home or self-care (01) ==
LOC: ERS 03:38
DX: K04.7 Periapical abscess without sinus (principal)
CPT/HCPCS: 41800; 87070; 87205; 96374; 96375; 99152; J1885; J2704; J3010

== ENCOUNTER 2023-04-19 18:28 | Emergency (ER) | payer OTHER, BC ==
[~2023-04-19 18:28] MED LIST: Iopamidol-370 76% 500 ML MDV (1 ML CHARGE) ONE
[2023-04-19 19:30] LABS: #Eosinphils 0.2 thou/uL (0.0-0.7); #Monocytes 0.3 thou/uL (0.11-0.59); #Neutrophils 2.3 thou/uL (1.40-6.50); %Basophils 0.4 % (0.0-1.0); %Eosinophils 3.9 % (0.0-10.0); %Monocytes 6.6 % (0.0-10.0); %Neutrophils 47.9 % (42.0-75.0); Hematocrit 35.8 % (36.0-47.0); Hemoglobin 11.9 g/dL (12.0-16.0); Mean Corpuscular HGB CONC 33.2 g/dL (32.0-36.0); Mean Corpuscular Hemoglobin 27.4 pg (27.0-31.0); Mean Corpuscular Volume 82.5 fl (78.0-98.0); Platelet Count 239 10x3/uL (130-400); RBC Distribution Width 13.6 % (11.5-14.5); Red Blood Cell (RBC) Count 4.34 mill/uL (4.20-5.40); White Blood Cell (WBC) Count 4.8 10x3/uL (4.8-10.8)
[2023-04-19] MEDS ORDERED: fentaNYL 50 mcg/mL 1 mL Vial ONE (19:37)
[2023-04-19 19:41] LABS: BHCG - Serum Negative (NEGATIVE); Pregs Control Background? CLEAR/WHITE (CLR/WHITE); Pregs Control Bar Appear? YES (CONTROL BAR)
[2023-04-19 19:52] LABS: ALT (SGPT) 8 U/L (8-55); AST (SGOT) 14 U/L (5-34); Albumin 4.2 g/dL (3.5-5.0); Alkaline Phosphatase 54 U/L (40-110); Anion Gap 11 mmol/L (10-20); BUN (Urea Nitrogen) 9 mg/dL (7.0-18.7); Bilirubin, Total 0.4 mg/dL (0.2-1.2); Calc. Creatinine Clearance 0 mL/min (70-130); Calcium 9.1 mg/dL (7.8-10.44); Carbon Dioxide 24 mmol/L (22-29); Chloride 108 mmol/L (98-107); Estimated GFR 99; Globulin 3.1 g/dL (2.4-3.5); Glucose 92 mg/dL (70-105); Potassium 3.4 mmol/L (3.5-5.1); Protein, Total 7.3 g/dL (6.0-8.3); Sodium 140 mmol/L (136-145)
[2023-04-19] MEDS ORDERED: Acetaminophen 500 MG TAB ONE (21:07)
[2023-04-19] MEDS ORDERED: Orphenadrine Citrate 60 MG/2 ML VIAL ONE (21:08)
[2023-04-19] MEDS ORDERED: Potassium Chloride 20 MEQ TAB ONE (21:08)
[2023-04-19] MEDS ORDERED: Ketorolac Tromethamine 30 MG/ML VIAL ONE (21:08)
== END 2023-04-19 21:27 | disposition home or self-care (01) ==
LOC: ERS 18:28
DX: K80.20 Calculus of gallbladder without cholecystitis without obstruction (principal); V29.99XA Rider (driver) (passenger) of other motorcycle injured in unspecified traffic accident, initial encounter
CPT/HCPCS: 70450; 71045; 71260; 72125; 74177; 80053; 84703; 85025; 96374; 96375; J1885; J2360; J3010; Q9967

== ENCOUNTER 2023-08-16 08:30 | Emergency (ER) | payer SELFPAY ==
[2023-08-16] MEDS ORDERED: Acetaminophen 500 MG TAB ONE (09:24)
[2023-08-16 09:30] LABS: SARS-CoV-2 NAA Rapid Test DETECTED (NotDetected)
== END 2023-08-16 09:50 | disposition home or self-care (01) ==
LOC: ERS 08:30
DX: U07.1 COVID-19 (principal)
CPT/HCPCS: 99283

== ENCOUNTER 2024-07-24 11:52 | Emergency (ER) | payer SELFPAY | END 2024-07-24 14:45 | LOC: ERS 11:52 | DX: M54.6 Pain in thoracic spine (principal); R09.81 Nasal congestion; R05.9 Cough, unspecified; Z53.21 Procedure and treatment not carried out due to patient leaving prior to being seen by health care provider | CPT/HCPCS: 99282 ==

== ENCOUNTER 2025-02-08 07:13 | Emergency (ER) | payer BC ==
[2025-02-08 08:42] LABS: #Basophils Less than 0.03 10x3/uL (0.0-0.2); #Eosinophils 0.16 10x3/uL (0.0-0.7); #Monocytes 0.36 10x3/uL (0.11-0.59); #Neutrophils 2.46 10x3/uL (1.40-6.50); %Basophils 0.4 % (0.0-1.0); %Eosinophils 3.4 % (0.0-10.0); %Lymphocytes 36.7 % (21.0-51.0); %Monocytes 7.6 % (0.0-10.0); %Neutrophils 51.9 % (42.0-75.0); Hematocrit 33.3 % (36.0-47.0); Hemoglobin 10.6 g/dL (12.0-16.0); Mean Corpuscular Hemoglobin 26.2 pg (27.0-31.0); Mean Corpuscular Volume 82.4 fL (78.0-98.0); Platelet Count 220 10x3/uL (130-400); Red Blood Cell (RBC) Count 4.04 mill/uL (4.20-5.40); White Blood Cell (WBC) Count 4.74 10x3/uL (4.8-10.8)
[2025-02-08] MEDS ORDERED: Dexamethasone 10 MG/ML VIAL ONE (08:42)
[2025-02-08] MEDS ORDERED: Ketorolac Tromethamine 30 MG (1 mL) VIAL ONE (08:42)
[2025-02-08 08:53] LABS: Cocaine Metabolite Screen Negative (Negative); THC/Cannabinoid Screen PRELIM POSITIVE (Negative); Tricyclic Screen Negative (Negative)
[2025-02-08 08:55] LABS: BHCG - Serum Negative (NEGATIVE); Pregs Control Background? CLEAR/WHITE (CLR/WHITE); Pregs Control Bar Appear? YES (CONTROL BAR)
[2025-02-08 08:59] LABS: Lipase 21 U/L (8-78)
[2025-02-08 09:01] LABS: ALT (SGPT) 8 U/L (Less than 34); AST (SGOT) 19 U/L (11-34); Albumin 3.7 g/dL (3.1-4.5); Alkaline Phosphatase 60 U/L (40-110); Anion Gap 11 mmol/L (10-20); BUN (Urea Nitrogen) 11 mg/dL (7.0-18.7); Bilirubin, Total 0.3 mg/dL (0.3-1.2); CK (CPK) 140 U/L (29-168); Calc. Creatinine Clearance 0 mL/min (70-130); Calcium 8.6 mg/dL (7.8-10.44); Carbon Dioxide 27 mmol/L (22-29); Chloride 108 mmol/L (98-107); Globulin 3.6 g/dL (2.4-3.5); Glucose 87 mg/dL (70-105); Potassium 3.8 mmol/L (3.5-5.1); Sodium 142 mmol/L (136-145)
[2025-02-08 09:02] LABS: Acetaminophen Less than 10 mcg/mL (Less than 10); Salicylate Less than 8.0 mg/dL (Less than 8.0)
== END 2025-02-08 10:20 | disposition home or self-care (01) ==
LOC: ERS 07:13
DX: M62.838 Other muscle spasm (principal); F12.90 Cannabis use, unspecified, uncomplicated; R29.700 NIHSS score 0
CPT/HCPCS: 70450; 72125; 80053; 80306; 80307; 82550; 83690; 84703; 85025; 93005; 96374; 96375; J1100; J1885; J2060; J2270